=== PATIENT | female | born 1955 | race Caucasian/White ===

== ENCOUNTER 2020-10-25 02:04 | Observation (INO) ==
[2020-10-25] MEDS ORDERED: *HR* FentaNYL (PF) 100 MCG/2 ML VIAL IVP ONE ×2 (02:24→04:18)
[2020-10-25] MEDS ORDERED: Ondansetron 4 MG/2 ML VIAL IVP ONE (02:24)
[2020-10-25] MEDS ORDERED: Ondansetron 4 MG/2 ML VIAL IVP PRN ×3 (06:31→13:15)
[2020-10-25] MEDS ORDERED: *HR* OxyCODONE/APAP 5/325 TABLET PO PRN ×2 (06:31→13:15)
[2020-10-25] MEDS ORDERED: Ketorolac 30 MG/ML VIAL IVP PRN (06:31)
[2020-10-25] MEDS ORDERED: 0.9 % Sodium Chloride 1,000 ML IVC SCH (06:45)
[2020-10-25] MEDS ORDERED: CeFAZolin 2 GM/120 ML BAG IVPB SCH (08:00)
[2020-10-25] MEDS ORDERED: Clindamycin 600 MG/50 ML 600 MG/50 ML IV.SOLN IVPB SCH (08:00)
[2020-10-25 09:09] LABS: Adenovirus Not Detected (Not Detect); Bordetella Pertussis Not Detected (Not Detect); Chlamydophila pneumoniae Not Detected (Not Detect); Coronavirus 229E Not Detected (Not Detect); Coronavirus HKU1 Not Detected (Not Detect); Coronavirus NL63 Not Detected (Not Detect); Coronavirus OC43 Not Detected (Not Detect); Human Metapneumovirus Not Detected (Not Detect); Human Rhinovirus/Enterovirus Not Detected (Not Detect); Influenza A Subtype 2009 H1 Not Detected (Not Detect); Influenza B Not Detected (Not Detect); Mycoplasma pneumoniae Not Detected (Not Detect); Parainfluenza Virus 1 Not Detected (Not Detect); Parainfluenza Virus 2 Not Detected (Not Detect); Parainfluenza Virus 3 Not Detected (Not Detect); Parainfluenza Virus 4 Not Detected (Not Detect); Respiratory Syncytial Virus Not Detected (Not Detect); SARS-CoV-2 Not Detected (Not Detect)
[2020-10-25] MEDS ORDERED: *HR* FentaNYL (PF) 100 MCG/2 ML VIAL ONE (09:29)
[2020-10-25] MEDS ORDERED: *HR* Propofol 200 MG/20 ML VIAL IVP ONE (09:29)
[2020-10-25] MEDS ORDERED: Lidocaine -MPF 4% 5 ML AMPUL ONE (09:29)
[2020-10-25] MEDS ORDERED: *HR* Rocuronium Bromide 50 MG/5 ML VIAL ONE (09:29)
[2020-10-25] MEDS ORDERED: *HR* Succinylcholine 200 MG/10 ML VIAL IVP ONE (09:29)
[2020-10-25] MEDS ORDERED: Lidocaine -MPF 2% 2 ML VIAL ONE (09:29)
[2020-10-25] MEDS ORDERED: Ondansetron 4 MG/2 ML VIAL ONE (09:29)
[2020-10-25] MEDS ORDERED: *HR* HYDROmorphone PF 0.5 MG/0.5 ML SYRINGE IVP PRN (09:47)
[2020-10-25] MEDS ORDERED: Promethazine 6.25 MG in Water for inj. (sterile) 20 ML IVPB PRN (09:47)
[2020-10-25] MEDS ORDERED: *HR* OxyCODONE Immed Rel 5 MG TABLET PO PRN (09:47)
[2020-10-25] MEDS ORDERED: Acetaminophen IV 1,000 MG/100 ML BAG IVPB ONE (10:02)
[2020-10-25] MEDS ORDERED: Sugammadex Sodium 200 MG/2 ML VIAL IV ONE (11:33)
[2020-10-25] MEDS ORDERED: Ketorolac 30 MG/ML VIAL ONE (11:39)
[2020-10-25] MEDS: 0.9 % Sodium Chloride 1,000 ML IVC SCH (13:32)
[2020-10-25] MEDS: Ketorolac 15 MG/ML VIAL IVP SCH ×3 (13:38→23:12)
[2020-10-25] MEDS: Clindamycin 600 MG/50 ML 600 MG/50 ML IV.SOLN IVPB SCH (17:17)
[2020-10-25] MEDS: *HR* Metformin 500 MG TABLET PO SCH (17:17)
[2020-10-25] MEDS ORDERED: *HR* LORazepam 0.5 MG TABLET PO SCH (21:00)
[2020-10-26] MEDS: 0.9 % Sodium Chloride 1,000 ML IVC SCH (00:47)
[2020-10-26] MEDS: Clindamycin 600 MG/50 ML 600 MG/50 ML IV.SOLN IVPB SCH ×2 (01:13→08:51)
[2020-10-26] MEDS: Ketorolac 15 MG/ML VIAL IVP SCH (05:46)
[2020-10-26 07:25] VITALS: BP 103/59
[2020-10-26] MEDS ORDERED: *HR* Glimepiride 2 MG TABLET PO SCH (08:00)
[2020-10-26] MEDS: *HR* Metformin 500 MG TABLET PO SCH (08:50)
[2020-10-26] MEDS ORDERED: Metoprolol XL (24 HR) Succ 50 MG TAB.ER.24H PO SCH (09:00)
== END 2020-10-26 12:57 | disposition home or self-care (01) ==
LOC: 2ANU 02:04 → EMEROOARM 02:04 → 2ANU 05:07
PROVIDERS: ADMIT Surgery; ATTEND Surgery